=== PATIENT | female | born 1980 | race Caucasian/White ===

== ENCOUNTER → 2017-05-14 13:52 | Outpatient (CLI) | payer MEDICAID ==
[2017-05-15 09:12] LABS: CEA 1.1 ng/mL (0.0-4.7)
== END | disposition home or self-care (01) ==
LOC: D.LAB 13:52 → D.CT 15:00
PROVIDERS: Internal Medicine Gastroenterology
DX: R10.30 Lower abdominal pain, unspecified (principal); R93.8 Abnormal findings on diagnostic imaging of other specified body structures

== ENCOUNTER 2018-02-18 19:55 | Emergency (ER) | payer MEDICAID | END 2018-02-18 22:13 | disposition home or self-care (01) | LOC: D.ER 19:55 | DX: J20.9 Acute bronchitis, unspecified (principal); J06.9 Acute upper respiratory infection, unspecified ==

== ENCOUNTER 2019-12-03 18:52 | Emergency (ER) | payer MEDICAID ==
[~2019-12-03] VITALS: Ht 165.1 cm; Wt 112.5 kg
[2019-12-03 19:20] VITALS: Ht 165.1 cm; Wt 112.5 kg
[2019-12-03] MEDS ORDERED: PROVENTIL/2.5 MG/3 M (19:23)
[2019-12-03] MEDS ORDERED: ALBUTEROL SULF8.5 GM INH (19:25)
[2019-12-03 20:04] LABS: BASOPHILS 0.1 % (0-2); HEMATOCRIT 39.7 % (36.0-48.0); HEMOGLOBIN 12.8 g/dL (12-16); IMMATURE GRANULOCYTES 0.1 % (0-5); LYMPHOCYTES 18.7 % (15-50); MCH 29.1 pg (26.0-34.0); MCHC 32.2 g/dL (31.0-37.0); MCV 90.2 fL (80.0-100.0); MEAN PLATELET VOLUME 9.7 fL (7.4-10.4); MONOCYTES 7.3 % (2-11); NEUTROPHILS 71.8 % (40-80); PLATELET COUNT 297 10x3/uL (130-400); RDW 13.9 % (11.5-14.5); WBC 8.5 10x3/uL (4.8-10.8)
[2019-12-03 20:12] LABS: INR 0.96 (0.85-1.17); PROTIME 12.3 SECONDS (11.6-15.0)
[2019-12-03 20:13] LABS: APTT 28.3 SECONDS (22.8-39.4)
[2019-12-03 20:48] LABS: CALC OSMOLALITY 282 mosm/kg (275-300); CALCIUM 8.7 mg/dL (8.5-10.1); CARBON DIOXIDE 29.7 mmol/L (21.0-32.0); CHLORIDE - SERUM 104 mmol/L (98-107); CREATININE - SERUM 0.7 mg/dL (0.6-1.3); GLUCOSE 92 mg/dL (74-106); POTASSIUM - SERUM 4.2 mmol/L (3.5-5.1); SODIUM 142 mmol/L (136-145); UREA NITROGEN 13 mg/dL (7-18); eGFR NON AFRICAN AMERICAN > 90 mL/min (90-120)
[2019-12-03 21:04] LABS: ALBUMIN 3.2 g/dL (3.4-5.0); ALKALINE PHOSPHATASE 89 U/L (46-116); ALT (SGPT) 25 U/L (10-68); BILIRUBIN - TOTAL 0.15 mg/dL (0.2-1.3); CKMB 0.9 U/L (0.0-3.6); CREATINE KINASE 97 UL (21-215); PROTEIN - SERUM 6.8 g/dL (6.4-8.2)
[2019-12-03 21:05] LABS: TROPONIN-I < 0.017 ng/mL (0.000-0.060)
[2019-12-03] MEDS ORDERED: PREDNISONE20 MG PO (21:20)
[2019-12-03 21:32] VITALS: BP 116/63
== END 2019-12-03 21:33 | disposition home or self-care (01) ==
LOC: D.ER 18:52
PROVIDERS: Family Medicine
DX: J45.909 Unspecified asthma, uncomplicated (principal)

== ENCOUNTER 2020-08-20 12:33 | Emergency (ER) | payer MEDICAID ==
[~2020-08-20] VITALS: Ht 165.1 cm; Wt 93.2 kg
[~2020-08-20 12:33] MED LIST: ALBUTEROL SULF8.5 GM INH; PREDNISONE20 MG PO; PROVENTIL/2.5 MG/3 M
[2020-08-20 12:43] VITALS: Ht 165.1 cm; Wt 93.2 kg
[2020-08-20 13:02] LABS: BASOPHILS 0.3 % (0-2); EOSINOPHILS 3.2 % (0-7); HEMATOCRIT 40.5 % (36.0-48.0); IMMATURE GRANULOCYTES 0.2 % (0-5); LYMPHOCYTES 20.7 % (15-50); MCH 28.5 pg (26.0-34.0); MCHC 32.1 g/dL (31.0-37.0); MCV 88.8 fL (80.0-100.0); MEAN PLATELET VOLUME 9.5 fL (7.4-10.4); MONOCYTES 6.8 % (2-11); NEUTROPHILS 68.8 % (40-80); PLATELET COUNT 332 10x3/uL (130-400); RBC 4.56 10x6/uL (4.00-5.40); RDW 13.4 % (11.5-14.5); WBC 6.6 10x3/uL (4.8-10.8)
[2020-08-20 13:16] LABS: CALC OSMOLALITY 281 mosm/kg (275-300); CALCIUM 8.7 mg/dL (8.5-10.1); CARBON DIOXIDE 29.6 mmol/L (21.0-32.0); CHLORIDE - SERUM 104 mmol/L (98-107); CREATININE - SERUM 0.8 mg/dL (0.6-1.3); GLUCOSE 103 mg/dL (74-106); POTASSIUM - SERUM 3.8 mmol/L (3.5-5.1); SODIUM 141 mmol/L (136-145); UREA NITROGEN 14 mg/dL (7-18); eGFR NON AFRICAN AMERICAN 84 mL/min (90-120)
[2020-08-20 13:22] LABS: ALBUMIN 3.6 g/dL (3.4-5.0); ALKALINE PHOSPHATASE 74 U/L (30-120); ALT (SGPT) 19 U/L (10-68); BILIRUBIN - TOTAL 0.27 mg/dL (0.2-1.3); PROTEIN - SERUM 7.2 g/dL (6.4-8.2)
[2020-08-20] MEDS ORDERED: VENTOLIN HFA [SP8 GM INH (13:26)
[2020-08-20 13:56] VITALS: BP 110/57
== END 2020-08-20 13:57 | disposition home or self-care (01) ==
LOC: D.ER 12:33
PROVIDERS: Family Medicine
DX: J45.909 Unspecified asthma, uncomplicated (principal); R05 Cough

== ENCOUNTER 2021-02-08 17:21 | Emergency (ER) | payer MEDICAID ==
[~2021-02-08] VITALS: Ht 165.1 cm; Wt 93.6 kg
[~2021-02-08 17:21] MED LIST changes: +VENTOLIN HFA [SP8 GM INH
[2021-02-08 17:32] VITALS: Ht 165.1 cm; Wt 93.6 kg
[2021-02-08] MEDS ORDERED: ALBUTEROL SULF8.5 GM INH (17:48)
[2021-02-08 18:29] VITALS: BP 122/58
== END 2021-02-08 18:29 | disposition home or self-care (01) ==
LOC: D.ER 17:21
DX: J45.901 Unspecified asthma with (acute) exacerbation (principal)